=== PATIENT | female | born 1980 | race Caucasian/White ===

== ENCOUNTER 2023-09-07 22:37 | Inpatient (IN) | payer OTHER, SELFPAY ==
[2023-09-07 22:41] VITALS: BP 108/47; PULSE 66; RESP 18; TEMP 36.8; O2SAT 100
[2023-09-07 22:42] VITALS: BP 108/47; PULSE 60; O2SAT 99
--- NOTE | 2023-09-07 22:44 | DI.CT_ITS ---
Exam(s) CT ABDOMEN PELVIS W EXAM: CT ABDOMEN PELVIS W CLINICAL HISTORY: rlq pain, eval for stone, appe, torsion. TECHNIQUE: Imaging Protocol: Axial computed tomography images with coronal and sagittal reformatted images were created and reviewed CONTRAST MATERIAL: Intravenous: Omnipaque 350 Contrast volume:100 ml Oral: no COMPARISON: No exams were available for comparison FINDINGS: ABDOMEN and PELVIS: Lung Bases: No acute findings. Liver: Normal density. No measurable mass. Gallbladder and biliary tract: No radiodense calculus or dilation. Pancreas: Normal density. No abnormal calcifications or inflammatory process. No evidence of mass. Spleen: Normal. Kidneys: Normal size, contour and axis. Small nonobstructing stone upper pole left kidney. 5 x 7 mil limeter stone noted in right ureteropelvic junction causing mild right hydronephrosis. Some fluid is seen surrounding the kidney indicating caliceal rupture. No additional right-sided calculi. A simple cyst is noted in the mid left kidney. There is an 18 millimeter low-density but not purely cystic are a in the superior pole of the left kidney, adjacent to the area of calcification. This may represent a proteinaceous cyst. Adrenal glands: No masses seen. Vasculature: Abdominal aorta non-dilated. Soft tissues: Unremarkable. Bladder: No gross wall thickening. No calculi.No focal mass. Bowel: No obstruction. No bowel wall thickening. Appendix normal. Peritoneal cavity: No ascites. No focal collection or mesenteric inflammatory response. Bones: Incomplete segmentation at the L4-5 level, otherwise unremarkable.. Reproductive organs: Within normal limits. Lymph nodes: Unremarkable. IMPRESSION:: Mild right hydronephrosis secondary to 5 x 7 millimeter calculus at the ureteropelvic j unction. 18 millimeter low-density lesion at the upper pole of the left kidney. Further evaluation with ultras ound recommended. RADIATION DOSE DELIVERED: Total DLP DATA REPOSITORY: All CT scans at this facility are submitted to the National Radiology Data Registry (NRDR) Dose Index Registry (DIR) with the [employer] (ACR). RADIATION OPTIMIZATION: All CT scans at this facility use at least one of these dose optimization te chniques: automated exposure control; mA and/or kV adjustment per patient size (includes targeted exa ms where dose is matched to clinical indication); or iterative reconstruction.
[2023-09-07 22:46] VITALS: BP 106/68; PULSE 76; O2SAT 100
[2023-09-07 22:47] VITALS: O2SAT 100
[2023-09-07 22:58] LABS: Lactate 1.4 mmol/L (0.6-1.4)
[2023-09-07 22:59] LABS: Abs Immature Grans 0.03 10^3/uL (0.0-0.06); Absolute Basophil Count 0.03 10^3/uL (0.0-0.2); Absolute Eosinophil Count 0.05 10^3/uL (0.0-0.7); Absolute Lymphocyte Count 2.28 10^3/uL (1.2-3.4); Absolute Monocyte Count 0.52 10^3/uL (0.1-0.8); Basophils % 0.3; Eosinophils % 0.5; HCT 39.4 % (36.0-46.0); HGB 13.3 g/dL (11.2-15.7); Immature Grans % 0.3; Lymphocytes % 23.2; MCHC 33.8 % (32.0-36.0); MCV 89 fL (80-95); MPV 9.3 fL (8.0-11.0); Monocytes % 5.3; Neutrophils % 70.4; Platelet Count 233 10^3/uL (130-400); RBC 4.43 10^6/uL (3.93-5.22); RDW 12.1 % (11.7-14.6); RDW-SD 39.5 fL; WBC 9.81 10^3/uL (4.4-10.8)
[2023-09-07] MEDS: Ketorolac 15 MG/ML VIAL IVP (23:13)
[2023-09-07] MEDS: Ondansetron 4 MG/2 ML VIAL IVP (23:14)
[2023-09-07] MEDS: Normal Saline 1,000 ML 1000 ML IV (23:14)
[2023-09-07] MEDS: MORPHine 4 MG/ML SYR IVP (23:14)
[2023-09-07 23:16] LABS: ALT 28 U/L (14-59); AST 20 U/L (15-37); Albumin 3.7 g/dL (3.4-5.0); Alkaline Phosphatase 63 U/L (46-116); Anion Gap 8.8 mmol/L (3-11); BUN 16 mg/dL (7-18); Bilirubin, Total 0.3 mg/dL (0.2-1.0); CO2 28.2 mmol/L (21.0-32.0); CREATININE 0.9 mg/dL (0.55-1.02); Calcium 8.7 mg/dL (8.5-10.1); Chloride 106 mmol/L (98-107); Estimated GFR 81.35 (mL/min/1.73m2); Glucose 117 mg/dL (74-106); Sodium 143 mmol/L (136-145); Total Protein 6.6 g/dL (6.4-8.2)
[2023-09-07] MEDS: Omnipaque 350 MG/ML 100 ML BTL IJ (23:29)
[2023-09-07] MEDS: Normal Saline Flush 10 ML SYR IVP (23:31)
[2023-09-07 23:32] LABS: Bilirubin Negative (Negative); Blood Large (Negative); Clarity Clear (Clear); Glucose Negative (Negative); Ketones Trace mg/dL (Negative); Leukocyte Esterase Negative (Negative); Nitrite Negative (Negative); Urobilinogen 0.2 mg/dL (Up to 0.2)
[2023-09-07] MEDS: Normal Saline - Diluent 50 ML VIAL IV (23:32)
[2023-09-07 23:44] LABS: Bacteria Rare HPF (Negative); C & S Indicated? No/Sq. Contamination; Casts Negative LPF (Negative); Crystals Negative HPF (Negative); Epithelial Cells Moderate HPF (Negative); Mucus Negative (Negative); RBC >50 HPF (0-2); WBC 0-2 HPF (0-5)
[2023-09-08] VITALS (8 sets, daily range): BP systolic 100–120; BP diastolic 55–75; PULSE 55–62; RESP 14–19; TEMP 36.1–37.5; O2SAT 96–97
[2023-09-08] MEDS: MORPHine 4 MG/ML SYR IVP (00:28)
[2023-09-08] MEDS: Tamsulosin 0.4 MG CAPCR PO (00:42)
--- NOTE | 2023-09-08 00:53 | DI.VRAD_ITS ---
PROCEDURE INFORMATION: Exam: CT Abdomen And Pelvis With Contrast Exam date and time: 09/07/2023 11:34 PM Age: 43 years old Clinical indication: Abdominal pain; Localized; Right lower quadrant (rlq); Patient HX: Rlq pain, eval for stone, appe, torsion TECHNIQUE: Imaging protocol: Computed tomography of the abdomen and pelvis with contrast. Radiation optimization: All CT scans at this facility use at least one of these dose optimization techniques: automated exposure control; mA and/or kV adjustment per patient size (includes targeted exams where dose is matched to clinical indication); or iterative reconstruction. Contrast material: OMNIPAQUE 350; Contrast volume: 100 ml; Contrast route: INTRAVENOUS (IV); COMPARISON: No relevant prior studies available. FINDINGS: Lungs: Lung bases are clear. Liver: Unremarkable except for nonspecific, mild periportal edema. Gallbladder and bile ducts: Normal. No calcified stones. No ductal dilation. Pancreas: Normal. No ductal dilation. Spleen: Normal. No splenomegaly. Adrenal glands: Normal. No mass. Kidneys and ureters: There is mild right hydronephrosis and 3 x 7 mm stone at the ureteropelvic junction. Mild right perinephric fluid likely related caliceal rupture. No left renal stones or hydronephrosis. There is a left renal 1 cm mid kidney cyst. Second hypodensity seen in the upper pole measuring 1.8 cm, incompletely characterized, suspect complex cyst. Stomach and bowel: Unremarkable stomach. Normal caliber small bowel. Appendix: Normal appendix. Intraperitoneal space: Unremarkable. No free air. No significant fluid collection. Vasculature: Unremarkable. No abdominal aortic aneurysm. Lymph nodes: Unremarkable. No enlarged lymph nodes. Urinary bladder: Bladder is decompressed. Reproductive: Incidentally noted 1 cm involuting left ovarian follicle. Uterus and right adnexal region are unremarkable. Bones/joints: Incidentally noted incomplete segmentation of the L4 and L5 vertebral bodies.. No acute fracture. Soft tissues: Unremarkable. IMPRESSION: Mild right hydronephrosis and 7 x 3 mm stone at the ureteropelvic junction. 1.8 cm hypodense finding in the left renal upper pole which is likely a complex cyst but is incompletely characterized . Suggest further evaluation with outpatient ultrasound. The Dictated and Authenticated by: Mahnaz Capone MD. Ordering:KALEB Veliz MD
--- NOTE | 2023-09-08 01:19 | ED.GENADUL_ITS ---
Discharge Plan Disposition Patient Disposition: Admit to [facility] Condition: Stable Discharge Details Chief Complaint: Abd Prob Clinical Impression: Kidney stone on right side Primary Care Provider: Marta,Local ED Provider: Jose Alfredo Calzada [facility] General Date/Time Provider Initiated Documentation: 09/07/23 22:38 . HPI Narrative: Pleasant 43-year-old female with no significant past medical history who presents today for evaluation of right flank pain. Patient states that about 45 minutes prior to arrival she developed right lower quadrant pain, nausea, vomiting. Pain is severe and stabbing. It does not radiate anywhere else but the right mid to lower area. She denies urinary changes, she had her menstrual cycle 1 week ago. She denies blood in her vomitus. No prior abdominal surgeries. No other complaints at this time. General Stated Complaint: Abd Prob ISIDRO: 3 Review of Systems All systems reviewed & are unremarkable except as noted in HPI and below Exam Narrative Exam Narrative: 1.Const: Well-nourished, Well-developed, appearing stated age 2.Eyes: PERRL, no conjunctival injection, and symmetrical lids. 3.ENT: Atraumatic external nose and ears. Moist MM. Neck: Symmetric, trachea midline, No thyromegaly. 4.CVS: +S1/S2, No murmurs or gallops. Peripheral pulses 2+ and equal in all extremities. Brisk capillary refill in all extremities. 5.RESP: Unlabored respiratory effort. Clear to auscultation bilaterally. No wheezes rales or rhonchi 6.GI: Soft, nondistended. No guarding or rebound. Mild right-sided CVA tenderness, positive psoas sign. Palpation of the right lower and mid quadrants only mildly increases pain. No significant left-sided tenderness. Minimal achiness on the left-hand side. 7.MSK: Normocephalic/Atraumatic, Extremities w/o deformity or ttp No cyanosis or clubbing, Normal movement of all extremities 8.Skin: Warm, Dry. No rashes or lesions. 9.Neuro: visual inspector II-XII grossly intact. Sensation grossly intact, no focal n eurologic deficits. 10.Psych: (AAO) x3. Appropriate mood and affect Course Vital Signs Vital signs: Vital Signs Temperature 36.8 C 09/07/23 22:41 Pulse 66 09/07/23 22:41 Respiratory Rate 18 09/07/23 22:41 Blood Pressure 108/47 L 09/07/23 22:41 Pulse Oximetry 100 09/07/23 22:41 Temperature 36.8 C 09/07/23 22:41 Temperature Source Temporal Artery Scan 09/07/23 22:41 Pulse 76 09/07/23 22:46 Respiratory Rate 18 09/07/23 22:41 Respiratory Effort Normal 09/07/23 22:43 Blood Pressure 106/68 09/07/23 22:46 Blood Pressure Mean 78 09/07/23 22:46 Blood Pressure Position Supine 09/07/23 22:41 Pulse Oximetry 100 09/07/23 22:46 Oxygen Delivery Method Room Air 09/07/23 22:41 Oxygen Flow Rate 0 09/07/23 22:41 Pain Level 9 09/07/23 22:41 Lab/Test Results Lab/Test Results: Laboratory Tests Range/Units 09/07/23 09/07/23 22:55 23:22 WBC (4.4-10.8) 10^3/uL 9.81 RBC (3.93-5.22) 10^6/uL 4.43 Hgb (11.2-15.7) g/dL 13.3 Hct (36.0-46.0) % 39.4 MCV (80-95) fL 89 MCH (27.0-33.0) pg 30.0 MCHC (32.0-36.0) % 33.8 RDW (11.7-14.6) % 12.1 Plt Count (130-400) 10^3/uL 233 MPV (8.0-11.0) fL 9.3 Immature Gran % 0.3 Neutrophils % 70.4 Lymphocytes % 23.2 Monocytes % 5.3 Eosinophils % 0.5 Basophils % 0.3 Nucleated RBC % (0.0-0.3) % 0.0 Absolute Neutrophils (1.2-6.7) 10^3/uL 6.90 H Absolute Lymphocytes (1.2-3.4) 10^3/uL 2.28 Absolute Monocytes (0.1-0.8) 10^3/uL 0.52 Absolute Eosinophils (0.0-0.7) 10^3/uL 0.05 Absolute Basophils (0.0-0.2) 10^3/uL 0.03 VBG Lactate (0.6-1.4) mmol/L 1.4 Sodium (136-145) mmol/L 143 Potassium (3.5-5.1) mmol/L 4.0 Chloride (98-107) mmol/L 106 Carbon Dioxide (21.0-32.0) mmol/L 28.2 Anion Gap (3-11) mmol/L 8.8 BUN (7-18) mg/dL 16 Creatinine (0.55-1.02) mg/dL 0.9 Est GFR (CKD-EPI 2020) (mL/min/1.73m2) 81.35 Glucose (74-106) mg/dL 117 H Calcium (8.5-10.1) mg/dL 8.7 Total Bilirubin (0.2-1.0) mg/dL 0.3 AST (15-37) U/L 20 ALT (14-59) U/L 28 Alkaline Phosphatase (46-116) U/L 63 Total Protein (6.4-8.2) g/dL 6.6 Albumin (3.4-5.0) g/dL 3.7 Urine Color (Yellow) Yellow Urine Clarity (Clear) Clear Urine pH (5-8) 7.0 Ur Specific [place] (1.005-1.025) 1.020 Urine Protein (Neg-Trace) mg/dL Trace Urine Ketones (Negative) mg/dL Trace H Urine Blood (Negative) Large H Urine Nitrite (Negative) Negative Urine Bilirubin (Negative) Negative Urine Urobilinogen (Up to 0.2) mg/dL 0.2 Ur Leukocyte Esterase (Negative) Negative Urine RBC (0-2) HPF >50 H Urine WBC (0-5) HPF 0-2 Ur Epithelial Cells (Negative) HPF Moderate Urine Crystals (Negative) HPF Negative Urine Bacteria (Negative) HPF Rare Urine Casts (Negative) LPF Negative Urine Mucus (Negative) Negative Ur Culture Indicated? No/Sq. Contamination Urine Glucose (Negative) mg/dL Negative POC- Test(urine) Negative Medical Decision Making Pleasant 43-year-old female with no significant past medical history who presents today for evaluation of right flank pain. Patient states that about 45 minutes prior to arrival she developed right lower quadrant pain, nausea, vomiting. Pain is severe and stabbing. It does not radiate anywhere else but the right mid to lower area. She denies urinary changes, she had her menstrual cycle 1 week ago. She denies blood in her vomitus. No prior abdominal surgeries. No other complaints at this time. Exam demonstrates right CVA tenderness, positive psoas sign, only slight worsening of the pain with palpation in the right lower quadrant. Symptoms are concerning for differential of appendicitis, kidney stone, or ovarian cyst. Will treat the patient's pain with Toradol, morphine, Zofran. Will monitor closely and reassess. 1:24 AM Laboratory workup returned, no white count bandemia or significant left shift. Lactate normal. Electrolytes normal, renal function excellent. Urinalysis shows large blood, no infection whatsoever. Pain was not well-managed with the initial morphine and Toradol. An additional 4 mg of morphine were given for a total of 8, as well as Ofirmev. And patient still did not have improvement of pain with this. CT scan shows evidence of a kidney stone, Flomax was added, but no change in pain. 1 mg of Dilaudid was added and only mild improvement of yon n. CT scan shows no sign of appendicitis, or large ovarian cyst suggestive of ovarian torsion. The patient's persistent pain and nausea I do feel that admission is indicated for pain control and continued fluid hydration. No emergent need for stenting at this time as she has excellent renal function and no signs of infection. That being said she may eventually need stenting down the road as the stone is 7 x 3 mm, and at the ureteropelvic junction. Discussed the case with the hospitalist Dr. Robledo for admission for pain control. He agrees. I have extensively reviewed the treatment plan with the patient. I have addressed all patient concerns at this time. I have also discussed the plan with the admitting physician and they agree with the current assessment and plan and have agreed to assume responsibility for the patient. All parties demonstrate verbal understanding and agreement with our assessment and plan at this time. The documentation in this chart was dictated using [employer] dictation software. Please excuse any dictation errors. FINDINGS: Lungs: Lung bases are clear. Liver: Unremarkable except for nonspecific, mild periportal edema. Gallbladder and bile ducts: Normal. No calcified stones. No ductal dilation. Pancreas: Normal. No ductal dilation. Spleen: Normal. No splenomegaly. Adrenal glands: Normal. No mass. Kidneys and ureters: There is mild right hydronephrosis and 3 x 7 mm stone at the ureteropelvic junction. Mild right perinephric fluid likely related caliceal rupture. No left renal stones or hydronephrosis. There is a left renal 1 cm mid kidney cyst. Second hypodensity seen in the upper pole measuring 1.8 cm, incompletely characterized, suspect complex cyst. Stomach and bowel: Unremarkable stomach. Normal caliber small bowel. Appendix: Normal appendix. Intraperitoneal space: Unremarkable. No free air. No significant fluid collection. Vasculature: Unremarkable. No abdominal aortic aneurysm. Lymph nodes: Unremarkable. No enlarged lymph nodes. Urinary bladder: Bladder is decompressed. Reproductive: Incidentally noted 1 cm involuting left ovarian follicle. Uterus and right adnexal region are unremarkable. Bones/joints: Incidentally noted incomplete segmentation of the L4 and L5 vertebral bodies.. No acute fracture. Soft tissues: Unremarkable. IMPRESSION: Mild right hydronephrosis and 7 x 3 mm stone at the ureteropelvic junction. 1.8 cm hypodense finding in the left renal upper pole which is likely a complex cyst but is incompletely characterized . Suggest further evaluation with outpatient ultrasound. The Thank you for allowing us to participate in the care of your patient. Dictated and Authenticated by: Mahnaz Capone MD 09/08/2023 12:52 AM Eastern Time ([place] & [place]) Quality:SDOH Health Related Social Needs: No Data to Display PFSH All Active Problems (Updated 09/08/23 @ 01:27 by Jose Alfredo Calzada DO) Kidney stone on right side (Acute) Social History Smoking risk assessment performed?: No Alcohol Intake: current Alcohol Intake frequency: a few times a month
[2023-09-08] MEDS: ACETAMINOPHEN 1,000 MG/100 ML BTL 400 MG IVPB (01:21)
[2023-09-08] MEDS: HYDROmorphone 2 MG/ML SYR 1 MG IVP ×6 (01:22→17:37)
--- NOTE | 2023-09-08 01:38 | HPE_ITS ---
Date of service: 09/08/23 Time of Service: 01:38 Assessment and Plan Assessment and plan (1) Ureteropelvic junction (UPJ) obstruction: Start date: 09/08/23 Status: Acute Assessment and plan: This is a 43-year-old lady with no previous history of renal stones presenting with right proximal ureteral stone with obstruction causing mild hydronephrosis. He is having persistent pain despite IV Dilaudid which decreases the intensity. It remains persistent and stabbing with some colic. She is on IV hydration with IV Dilaudid for pain management with urology to be consulted during the day. She may need stenting and transfer for outpatient procedure may be possible. She has no signs or symptoms of infection at this time. She is on Flomax. Continue Flomax with IV hydration pending urology evaluation and treatment plan. She is a full code. (2) Hydronephrosis due to obstruction of ureter: Start date: 09/08/23 Status: Acute Assessment and plan: Mild with significant 7 mm right ureteral stone. Urology consultation as above. (3) Renal cyst, right: Start date: 09/08/23 Status: Acute Assessment and plan: Incidental finding on CT with follow-up recommended. Ultrasound may be helpful to differentiate between complex cyst versus simple cysts versus mass which needs further evaluation. She does have hematuria but does have a renal stone. This was not reviewed with the patient upon admission but will be reviewed before discharge with urology to advise. 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 She is originally from [facility]. She has had increased running as a sport recently and about 2 weeks ago, ran a long run in [place] after which she urinated brown urine before rehydration. She also had recent changes in diet with [employer]. She presented to the ED with a 1 hour history of right flank pain which had associated nausea and vomiting. It did not radiate and persisted in the right flank and mid abdomen. CT scan did not reveal appendicitis but a right renal stone with obstruction of the UP junction and mild hydronephrosis. Stone was about 3 x 7 mm. She had no previous history of kidney stones and actually had no significant past medical history. She has had no previous surgeries. She is not . She was given antiemetics and analgesics in the ED with Dilaudid taking the edge off pain but not resolving her pain. Her pain persists though tolerable. She is on IV hydration with Flomax orally and urology has been consulted. I did call Dr[facility] Mar[facility] and will need to have urology at another institution addressed and stenting if she is not improving. There is no sign of infection and she is not on antibiotics at this time. Her nausea vomiting has resolved. She is a full code. Review of Systems Narrative: 13 point review of systems otherwise unrevealing or stable. PFSH All Active Problems (Updated 09/08/23 @ 07:56 by Zac Robledo) Renal cyst, right (Acute) Hydronephrosis due to obstruction of ureter (Acute) Ureteropelvic junction (UPJ) obstruction (Acute) Kidney stone on right side (Acute) Social History Smoking risk assessment performed?: No Alcohol Intake: current Alcohol Intake frequency: a few times a month Housing: house Meds Allergies and Home Medications Allergies Allergy/AdvReac Type Severity Reaction Status Date / Time No Known Allergies Allergy Unverified 09/08/23 01:27 Home Medications Medication Instructions Recorded Confirmed Type Unknown [No Known Home Meds] 09/08/23 09/08/23 History Exam Narrative Exam Narrative: General: Patient is a normal build with mild obesity, she appears appropriate for age, alert and oriented x 3 and in no acute distress. HEENT: Normocephalic, eyes with pupils equal and reactive to light symmetrically, extraocular movement intact and sclera anicteric. Oral mucosa is moist with normal dentition. Neck: Supple without JVD. Back: Slightly stooped posture with right CVA tenderness. Lungs: Clear to auscultation percussion with no focalizing rales or rhonchi. Normal aeration. Breast: Exam deferred. Heart: Regular rate and rhythm with no murmurs or gallops appreciated. Abdomen: Tender to palpation of the right mid-abdomen with no palpable masses, slight guarding but no rebound. Otherwise abdomen is soft with no guarding over other areas and no palpable kidneys. No palpable hepatosplenomegaly. Bowel sounds are positive in all quadrants. Genitalia/rectal: Exam deferred. Extremities: Without clubbing, cyanosis or pitting edema. Peripheral pulses intact. Skin: Normal color, warm and dry. No rashes. Neuro: Cranial nerves II to XII grossly intact, no focal motor deficits. No tremor. Psych: Normal affect and mood. No abnormal thought processes. Remote risk memory grossly intact. Results Imaging Imaging Studies: Exam: CT Abdomen And Pelvis With Contrast Exam date and time: 09/07/2023 11:34 PM Age: 43 years old Clinical indication: Abdominal pain; Localized; Right lower quadrant (rlq); Patient HX: Rlq pain, eval for stone, appe, torsion TECHNIQUE: Imaging protocol: Computed tomography of the abdomen and pelvis with contrast. Radiation optimization: All CT scans at this facility use at least one of these dose optimization techniques: automated exposure control; mA and/or kV adjustment per patient size (includes targeted exams where dose is matched to clinical indication); or iterative reconstruction. Contrast material: OMNIPAQUE 350; Contrast volume: 100 ml; Contrast route: INTRAVENOUS (IV); COMPARISON: No relevant prior studies available. FINDINGS: Lungs: Lung bases are clear. Liver: Unremarkable except for nonspecific, mild periportal edema. Gallbladder and bile ducts: Normal. No calcified stones. No ductal dilation. Pancreas: Normal. No ductal dilation. Spleen: Normal. No splenomegaly. Adrenal glands: Normal. No mass. Kidneys and ureters: There is mild right hydronephrosis and 3 x 7 mm stone at the ureteropelvic junction. Mild right perinephric fluid likely related caliceal rupture. No left renal stones or hydronephrosis. There is a left renal 1 cm mid kidney cyst. Second hypodensity seen in the upper pole measuring 1.8 cm, incompletely characterized, suspect complex cyst. Stomach and bowel: Unremarkable stomach. Normal caliber small bowel. Appendix: Normal appendix. Intraperitoneal space: Unremarkable. No free air. No significant fluid collection. Vasculature: Unremarkable. No abdominal aortic aneurysm. Lymph nodes: Unremarkable. No enlarged lymph nodes. Urinary bladder: Bladder is decompressed. Reproductive: Incidentally noted 1 cm involuting left ovarian follicle. Uterus and right adnexal region are unremarkable. Bones/joints: Incidentally noted incomplete segmentation of the L4 and L5 vertebral bodies.. No acute fracture. Soft tissues: Unremarkable. IMPRESSION: Mild right hydronephrosis and 7 x 3 mm stone at the ureteropelvic junction. 1.8 cm hypodense finding in the left renal upper pole which is likely a complex cyst but is incompletely characterized . Suggest further evaluation with outpatient ultrasound. Labs 09/08/23 06:05 09/08/23 06:05 Labs: Laboratory Results - last 24 hr 09/07/23 09/07/23 22:55 23:22 WBC 9.81 RBC 4.43 Hgb 13.3 Hct 39.4 MCV 89 MCH 30.0 MCHC 33.8 RDW 12.1 Plt Count 233 MPV 9.3 Immature Gran % 0.3 Neutrophils % 70.4 Lymphocytes % 23.2 Monocytes % 5.3 Eosinophils % 0.5 Basophils % 0.3 Nucleated RBC % 0.0 Absolute Neutrophils 6.90 H Absolute Lymphocytes 2.28 Absolute Monocytes 0.52 Absolute Eosinophils 0.05 Absolute Basophils 0.03 VBG Lactate 1.4 Sodium 143 Potassium 4.0 Chloride 106 Carbon Dioxide 28.2 Anion Gap 8.8 BUN 16 Creatinine 0.9 Est GFR (CKD-EPI 2020) 81.35 Glucose 117 H Calcium 8.7 Total Bilirubin 0.3 AST 20 ALT 28 Alkaline Phosphatase 63 Total Protein 6.6 Albumin 3.7 Urine Color Yellow Urine Clarity Clear Urine pH 7.0 Ur Specific [place] 1.020 Urine Protein Trace Urine Ketones Trace H Urine Blood Large H Urine Nitrite Negative Urine Bilirubin Negative Urine Urobilinogen 0.2 Ur Leukocyte Esterase Negative Urine RBC >50 H Urine WBC 0-2 Ur Epithelial Cells Moderate Urine Crystals Negative Urine Bacteria Rare Urine Casts Negative Urine Mucus Negative Ur Culture Indicated? No/Sq. Contamination Urine Glucose Negative Last Vital Signs Temp 36.8 C 09/07/23 22:41 Pulse 76 09/07/23 22:46 Resp 18 09/07/23 22:41 BP 106/68 09/07/23 22:46 Pulse Ox 100 09/07/23 22:46 Time Spent Time spent with Patient: 55-74 minutes Time was spent: preparing to see the patient(eg.review tests), obtaining and/or reviewing separately otained hiistory, ordering medications,tests, procedures, referring, communicating with other health respiratory care technician, indepentently interpreting results, counseling the patient and care coordination
[2023-09-08] MEDS: Normal Saline 1,000 ML 125 ML IV ×3 (03:08→19:34)
[2023-09-08 06:15] LABS: HCT 40.1 % (36.0-46.0); HGB 13.6 g/dL (11.2-15.7); MCH 29.9 pg (27.0-33.0); MCHC 33.9 % (32.0-36.0); MCV 88 fL (80-95); MPV 9.7 fL (8.0-11.0); Platelet Count 241 10^3/uL (130-400); RBC 4.55 10^6/uL (3.93-5.22); RDW 12.3 % (11.7-14.6); RDW-SD 39.8 fL; WBC 10.79 10^3/uL (4.4-10.8)
[2023-09-08 06:29] LABS: ALT 67 U/L (14-59); AST 49 U/L (15-37); Albumin 3.6 g/dL (3.4-5.0); Alkaline Phosphatase 66 U/L (46-116); Anion Gap 11.9 mmol/L (3-11); BUN 17 mg/dL (7-18); Bilirubin, Total 0.5 mg/dL (0.2-1.0); CO2 24.1 mmol/L (21.0-32.0); CREATININE 1.1 mg/dL (0.55-1.02); Calcium 8.5 mg/dL (8.5-10.1); Chloride 108 mmol/L (98-107); Estimated GFR 63.94 (mL/min/1.73m2); Glucose 117 mg/dL (74-106); Magnesium 1.8 mg/dL (1.8-2.4); Potassium 4.3 mmol/L (3.5-5.1); Sodium 144 mmol/L (136-145); Total Protein 6.3 g/dL (6.4-8.2)
[2023-09-08] MEDS: Tamsulosin 0.4 MG CAPCR 0.8 MG PO (08:13)
[2023-09-08] MEDS: Normal Saline Flush 10 ML SYR IVP ×4 (08:14→17:36)
--- NOTE | 2023-09-08 09:01 | PDOC.CMIN ---
Date of service: 09/08/23 Care Management Initial Assmt Initial Assessment REASON FOR HOSPITALIZATION:: Rt lower quad pain PREVIOUS FUNCTIONAL STATUS/SOCIAL/FAMILY SUPPORTS:: Yessy lives in [place] after moving to [place] from [place]. She is an from [place]. Per MD, Yessy is independent at baseline in the community. CURRENT FUNCTIONAL STATUS:: Yessy was sitting up in bed when talking with CM. She discussed she was hoping to pass the kidney stone on her own as also reported out from MD this was their mutual plan. Yessy says she is not in need of any services but CM provided contact information should she change her mind. Yessy had visitors who arrived so CM interaction brief. CM following. ADVANCE DIRECTIVES:: None on file at [facility] Has patient been provided with info about the portal/API?: Yes Did the patient sign up for the portal?: No CODE STATUS:: Full Code INSURANCE COVERAGE / FINANCIAL ISSUES:: [facility] PRIMARY CARE PHYSICIAN:: No local POTENTIAL DISCHARGE NEEDS:: F/U appts PATIENT/FAMILY EDUCATION NEEDS:: Review of discharge instructions and limitations, discussion of [employer] TRANSPORTATION:: Via private vehicle PLAN:: Anticipate Yessy will discharge home. She will transport via private vehicle. She will follow up with a PCP and plan of care instructions. CM following [facility] All Active Problems (Updated 09/08/23 @ 07:56 by Zac Robledo) Renal cyst, right (Acute) Hydronephrosis due to obstruction of ureter (Acute) Ureteropelvic junction (UPJ) obstruction (Acute) Kidney stone on right side (Acute) Social History Smoking risk assessment performed?: No Alcohol Intake: current Alcohol Intake frequency: a few times a month Housing: [facility](Care Management) Screening Will the Patient Participate in the Screening?: Yes Do you worry about having a steady place to live?: no In the past 12 months, have you had to go without electric, gas, oil or water in your home?: no Have you or anyone in your house had to go without enough food to eat?: no Has lack of transportation kept you from medical appointments or from doing things needed for daily living?: no Has anyone in your support network made you feel unsafe for any reason?: no
[2023-09-08] MEDS: Ondansetron 4 MG/2 ML VIAL IVP (12:35)
--- NOTE | 2023-09-08 13:03 | PHA.ACLINAW ---
Renal Dosing Renal Dosing: BUN 17 mg/dL (7-18) 09/08/23 06:05 Creatinine 1.1 mg/dL (0.55-1.02) H 09/08/23 06:05 Anticoagulation Anticoagulation: Hgb 13.6 g/dL (11.2-15.7) 09/08/23 06:05 Hct 40.1 % (36.0-46.0) 09/08/23 06:05 Plt Count 241 10^3/uL (130-400) 09/08/23 06:05 Creatinine 1.1 mg/dL (0.55-1.02) H 09/08/23 06:05 Relevant Labs Relevant Labs: Sodium 144 mmol/L (136-145) 09/08/23 06:05 Potassium 4.3 mmol/L (3.5-5.1) 09/08/23 06:05 Chloride 108 mmol/L (98-107) H 09/08/23 06:05 Magnesium 1.8 mg/dL (1.8-2.4) 09/08/23 06:05 DM Control DM Control: Glucose 117 mg/dL (74-106) H 09/08/23 06:05
--- NOTE | 2023-09-08 13:04 | PHA.REVIEW2 ---
Pharmacy Admission Review Admission Clinical Review Admission Pharmacy Review: Renal cyst, right (Acute) Hydronephrosis due to obstruction of ureter (Acute) Ureteropelvic junction (UPJ) obstruction (Acute) No Known Allergies Allergy (Unverified 09/08/23 01:27) Resuscitation Status Full Code Height 5 ft 8 in Weight 68.353 kg Comments Comments/Follow Ups: Watch VS, labs and for med changes. Pharmacy Admission Review Renal Dosing Renal Dosing: BUN 17 mg/dL (7-18) 09/08/23 06:05 Creatinine 1.1 mg/dL (0.55-1.02) H 09/08/23 06:05 Medications needing adjustments: Reviewed (Crcl ~71.16 mL/min current meds okay) Anticoagulation Anticoagulation: Hgb 13.6 g/dL (11.2-15.7) 09/08/23 06:05 Hct 40.1 % (36.0-46.0) 09/08/23 06:05 Plt Count 241 10^3/uL (130-400) 09/08/23 06:05 Creatinine 1.1 mg/dL (0.55-1.02) H 09/08/23 06:05 DVT Prophylaxis: Reviewed (SCDs are ordered) Therapeutic Anticoagulation: N/A Opiate Usage Evaluate Pain Scale/Pains Meds: Reviewed Scheduled Bowel Reg ordered if on Opiates?: No (has PRN meds ordered) Relevant Labs Relevant Labs: Sodium 144 mmol/L (136-145) 09/08/23 06:05 Potassium 4.3 mmol/L (3.5-5.1) 09/08/23 06:05 Chloride 108 mmol/L (98-107) H 09/08/23 06:05 Magnesium 1.8 mg/dL (1.8-2.4) 09/08/23 06:05 Electrolytes, C-Reactive P, ESR: Reviewed DM Control DM Control: N/A Cardiac Review BP, HR, EF%: Reviewed (BP and HR have been low to normal so far this admission) QTc Review QTc: N/A IV to PO Switch IV Medications: Reviewed Home Meds Home Med List reviewed: Reviewed (no known home meds) Current Meds Current Medication Order Review: Reviewed Comments Comments/Follow Ups: Watch VS, labs and for med changes.
[2023-09-08 13:34] LABS: Anion Gap 10.5 mmol/L (3-11); BUN 17 mg/dL (7-18); CO2 23.5 mmol/L (21.0-32.0); CREATININE 1.3 mg/dL (0.55-1.02); Calcium 8.2 mg/dL (8.5-10.1); Chloride 108 mmol/L (98-107); Estimated GFR 52.33 (mL/min/1.73m2); Glucose 94 mg/dL (74-106); Potassium 3.6 mmol/L (3.5-5.1); Sodium 142 mmol/L (136-145)
[2023-09-08] MEDS: Ketorolac 15 MG/ML VIAL IVP ×2 (14:11→20:08)
--- NOTE | 2023-09-08 14:52 | UCONE_ITS ---
Date of service: 09/08/23 Time of Service: 13:00 Assessment and Plan Assessment and plan (1) Ureteropelvic junction (UPJ) obstruction: Status: Acute (2) Hydronephrosis due to obstruction of ureter: Status: Acute Assessment and plan: Reviewed CT imaging with the patient and discussed her 5 x 7 mm UPJ right calculi that is causing mild hydronephrosis. We noted that there is a less than 50% chance possibility of passing this without surgical intervention. We also discussed that Dr. Marquez is out of the area until next week. We noted that if pain was not managed that our recommendation since Dr. Marquez is unavailable for surgical procedure is to seek transfer for patient to have procedure at another facility. We did discuss the option if pain is managed that surgical intervention procedure of stone manipulation could occur as early as next week when Dr. Marquez returns. Patient expresses information. This information was also discussed with hospitalist. At this point since patient is without infection, would recommend continuation of Flomax as well as IV fluids. May also benefit from use of Toradol for pain management if renal functions remained stable. Dictation was done by [employer] voice recognition. Errors may be present within the note. A total of 25 minutes was spent reviewing this patient's EMR, [id number] time, and documenting of consult. History of Present Illness History of Present Illness Chief Complaint: Acute onset right flank pain Narrative: Yessy is a 43-year-old female patient with right flank pain and associated nausea and vomiting that presented to the emergency room yesterday. She was admitted to the medical surgical floor for pain management. She was found to have a 5 x 7 mm calculi at the right UPJ. She notes no prior kidney stone history. She states that her pain is better but not resolved with the use of Dilaudid and that she is still having nausea sensation. She does not report dysuria, gross hematuria or suprapubic discomfort. No fever or chills have been noted. She does note that her right lower quadrant discomfort keeps her knees in a bent position when she lays on her back that she cannot lay flat with extending her legs. Consults Consult date: 09/08/23 Requesting physician: Zac Robledo Review of Systems Narrative: [facility] All Active Problems (Updated 09/08/23 @ 07:56 by Zac Robledo) Renal cyst, right (Acute) Hydronephrosis due to obstruction of ureter (Acute) Ureteropelvic junction (UPJ) obstruction (Acute) Kidney stone on right side (Acute) Social History Smoking risk assessment performed?: No Alcohol Intake: current Alcohol Intake frequency: a few times a month Housing: house Exam Const Orientation: alert, awake and oriented x3 Eyes Sclera: sclerae normal Resp Effort & Inspection: normal respiratory effort GI Inspection: normal to inspection and non-distended Palpation: soft, no masses and tender in the RLQ General: CVA tenderness on the right (mild); not on the left Results Last Vital Signs Temp 97.9 F 09/08/23 11:10 Pulse 59 L 09/08/23 11:10 Resp 17 09/08/23 11:10 BP 111/56 L 09/08/23 11:10 Pulse Ox 96 09/08/23 11:10 Labs 09/08/23 06:05 09/08/23 13:10 Labs: Laboratory Results - last 24 hr 09/07/23 09/07/23 09/08/23 22:55 23:22 06:05 WBC 9.81 10.79 RBC 4.43 4.55 Hgb 13.3 13.6 Hct 39.4 40.1 MCV 89 88 MCH 30.0 29.9 MCHC 33.8 33.9 RDW 12.1 12.3 Plt Count 233 241 MPV 9.3 9.7 Immature Gran % 0.3 Neutrophils % 70.4 Lymphocytes % 23.2 Monocytes % 5.3 Eosinophils % 0.5 Basophils % 0.3 Nucleated RBC % 0.0 Absolute Neutrophils 6.90 H Absolute Lymphocytes 2.28 Absolute Monocytes 0.52 Absolute Eosinophils 0.05 Absolute Basophils 0.03 VBG Lactate 1.4 Sodium 143 144 Potassium 4.0 4.3 Chloride 106 108 H Carbon Dioxide 28.2 24.1 Anion Gap 8.8 11.9 H BUN 16 17 Creatinine 0.9 1.1 H Est GFR (CKD-EPI 2020) 81.35 63.94 Glucose 117 H 117 H Calcium 8.7 8.5 Magnesium 1.8 Total Bilirubin 0.3 0.5 AST 20 49 H ALT 28 67 H Alkaline Phosphatase 63 66 Total Protein 6.6 6.3 L Albumin 3.7 3.6 Urine Color Yellow Urine Clarity Clear Urine pH 7.0 Ur Specific [place] 1.020 Urine Protein Trace Urine Ketones Trace H Urine Blood Large H Urine Nitrite Negative Urine Bilirubin Negative Urine Urobilinogen 0.2 Ur Leukocyte Esterase Negative Urine RBC >50 H Urine WBC 0-2 Ur Epithelial Cells Moderate Urine Crystals Negative Urine Bacteria Rare Urine Casts Negative Urine Mucus Negative Ur Culture Indicated? No/Sq. Contamination Urine Glucose Negative 09/08/23 13:10 WBC RBC Hgb Hct MCV MCH MCHC RDW Plt Count MPV Immature Gran % Neutrophils % Lymphocytes % Monocytes % Eosinophils % Basophils % Nucleated RBC % Absolute Neutrophils Absolute Lymphocytes Absolute Monocytes Absolute Eosinophils Absolute Basophils VBG Lactate Sodium 142 Potassium 3.6 Chloride 108 H Carbon Dioxide 23.5 Anion Gap 10.5 BUN 17 Creatinine 1.3 H Est GFR (CKD-EPI 2020) 52.33 Glucose 94 Calcium 8.2 L Magnesium Total Bilirubin AST ALT Alkaline Phosphatase Total Protein Albumin Urine Color Urine Clarity Urine pH Ur Specific [place] Urine Protein Urine Ketones Urine Blood Urine Nitrite Urine Bilirubin Urine Urobilinogen Ur Leukocyte Esterase Urine RBC Urine WBC Ur Epithelial Cells Urine Crystals Urine Bacteria Urine Casts Urine Mucus Ur Culture Indicated? Urine Glucose
[2023-09-09] MEDS: HYDROmorphone 2 MG/ML SYR 1 MG IVP (00:37)
[2023-09-09] MEDS: Ketorolac 15 MG/ML VIAL IVP ×4 (02:05→20:48)
[2023-09-09] MEDS: Normal Saline 1,000 ML 125 ML IV ×3 (02:05→18:20)
[2023-09-09 03:19] VITALS: BP 111/66; PULSE 62; RESP 16; TEMP 37.3; O2SAT 95
[2023-09-09 06:30] LABS: HCT 34.2 % (36.0-46.0); HGB 11.4 g/dL (11.2-15.7); MCHC 33.3 % (32.0-36.0); MCV 90 fL (80-95); MPV 9.8 fL (8.0-11.0); Platelet Count 146 10^3/uL (130-400); RDW 12.3 % (11.7-14.6); RDW-SD 40.4 fL
[2023-09-09 06:42] LABS: Anion Gap 8.4 mmol/L (3-11); BUN 14 mg/dL (7-18); CO2 22.6 mmol/L (21.0-32.0); CREATININE 1.2 mg/dL (0.55-1.02); Calcium 7.7 mg/dL (8.5-10.1); Chloride 110 mmol/L (98-107); Glucose 97 mg/dL (74-106); Potassium 3.8 mmol/L (3.5-5.1); Sodium 141 mmol/L (136-145)
[2023-09-09] MEDS: Tamsulosin 0.4 MG CAPCR 0.8 MG PO (07:50)
[2023-09-09] MEDS: Normal Saline Flush 10 ML SYR IVP ×3 (07:51→21:09)
[2023-09-09 07:54] VITALS: BP 100/55; PULSE 58; RESP 16; TEMP 36.4; O2SAT 100
--- NOTE | 2023-09-09 08:47 | W.PM.PROGNOT ---
Date of Service Date of service: 09/09/23 Time of Service: 08:47 Assessment and Plan Assessment and plan (1) Ureteropelvic junction (UPJ) obstruction: Status: Acute Assessment and plan: -CT showed 5x7mm calculi in right UPJ with mild hydronephrosis -UPO good, continue NS 125ml/hr, flowmax, toradol and PRN dilaudid -Cr 0.9, 1.1, 1.3, 1.2, will continue to monitor -if patients pain becomes significantly worse, becomes febrile, or has significant drop off in UOP will reach out for transfer for Urgent Urologic intervention as Dr. Marquez is not available until wednesday -if patient remains stable, plan for ureteral stent placement Wednesday w/ Dr. Marquez (2) Hydronephrosis due to obstruction of ureter: Status: Acute Assessment and plan: -due to UPJ stone as noted above Subjective Subjective Interval history since last seen: Patient states that she is feeling better today and that her pain is well-controlled. Otherwise she has no other complaints concerns at Exam Narrative Exam Narrative: Healthy young female laying in bed in no acute distress, ANO x 4, heart regular rhythm, lungs clear to auscultation bilaterally, abdomen soft, nontender, nondistended Objective Last Vital Signs Temp 97.5 F L 09/09/23 07:54 Pulse 58 L 09/09/23 07:54 Resp 16 09/09/23 07:54 BP 100/55 L 09/09/23 07:54 Pulse Ox 100 09/09/23 07:54 Laboratory Results - last 24 hr 09/08/23 09/09/23 13:10 06:23 WBC 7.50 RBC 3.80 L Hgb 11.4 D Hct 34.2 L MCV 90 MCH 30.0 MCHC 33.3 RDW 12.3 Plt Count 146 MPV 9.8 Sodium 142 141 Potassium 3.6 3.8 Chloride 108 H 110 H Carbon Dioxide 23.5 22.6 Anion Gap 10.5 8.4 BUN 17 14 Creatinine 1.3 H 1.2 H Est GFR (CKD-EPI 2020) 52.33 57.60 Glucose 94 97 Calcium 8.2 L 7.7 L Time Spent with Patient Time Spent with Patient: >50 minutes Time was spent: preparing to see the patient(eg.review tests), obtaining and/or reviewing separately otained hiistory, ordering medications,tests, procedures, referring, communicating with other health home health care physician, indepentently interpreting results, counseling the patient and care coordination
--- NOTE | 2023-09-09 09:52 | PDOC.CMPRO ---
Date of service: 09/09/23 Care Management Progress Note Progress Note Text Progress Note Text: S/O: Yessy was sitting up in a chair when talking with CM. 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 She is building a home she has dreamed of having in [place] on four acres of property that is perfect distrance to trails she enjoys biking on. It is not known at this time if out of state insurance will approve coverage for the urology procedure that is needed. CM spoke to CONFLICT RESOLUTION PROFESSIONAL for Dr. Marquez who can perform needed urology procedure Wednesday. CM let CONFLICT RESOLUTION PROFESSIONAL know a prior authorization will be needed through patients insurance company facilitated from the clinic where the procedure will be completed. CM will continue to follow. A: Yessy is a 43 year old female admitted to [facility] 09/08/23 for right ureteropelvic obstruction w/ hydronephrosis. P: Yessy will discharge home when medically cleared. She will follow up with her PCP and plan of care instructions. She will transport via private vehicle. CM following. [facility](Care Management) Screening Will the Patient Participate in the Screening?: Yes Do you worry about having a steady place to live?: no In the past 12 months, have you had to go without electric, gas, oil or water in your home?: no Have you or anyone in your house had to go without enough food to eat?: no Has lack of transportation kept you from medical appointments or from doing things needed for daily living?: no Has anyone in your support network made you feel unsafe for any reason?: no
[2023-09-09 11:06] VITALS: BP 117/77; PULSE 62; RESP 16; TEMP 36.6; O2SAT 99
[2023-09-09] MEDS: Polyethylene Glycol 3350 17 GM PACKET PO (14:23)
[2023-09-09 14:58] VITALS: BP 105/68; PULSE 62; RESP 16; TEMP 36.8; O2SAT 99
[2023-09-09 23:06] VITALS: BP 100/68; PULSE 58; RESP 18; TEMP 36.3; O2SAT 96
[2023-09-10] VITALS (7 sets, daily range): BP systolic 102–130; BP diastolic 56–72; PULSE 50–65; RESP 16; TEMP 37.1–37.8; O2SAT 96–99
[2023-09-10] MEDS: Ketorolac 15 MG/ML VIAL IVP ×4 (02:01→22:46)
[2023-09-10] MEDS: Normal Saline 1,000 ML 125 ML IV ×3 (02:02→19:27)
[2023-09-10 06:36] LABS: HCT 32.7 % (36.0-46.0); HGB 11.1 g/dL (11.2-15.7); MCH 30.2 pg (27.0-33.0); MCHC 33.9 % (32.0-36.0); MCV 89 fL (80-95); Platelet Count 151 10^3/uL (130-400); RBC 3.67 10^6/uL (3.93-5.22); RDW 12.1 % (11.7-14.6); RDW-SD 39.4 fL; WBC 6.47 10^3/uL (4.4-10.8)
[2023-09-10 06:48] LABS: Anion Gap 7.4 mmol/L (3-11); BUN 11 mg/dL (7-18); CO2 24.6 mmol/L (21.0-32.0); Chloride 112 mmol/L (98-107); Estimated GFR 71.69 (mL/min/1.73m2); Glucose 93 mg/dL (74-106); Sodium 144 mmol/L (136-145)
[2023-09-10] MEDS: Tamsulosin 0.4 MG CAPCR 0.8 MG PO (08:14)
[2023-09-10] MEDS: Normal Saline Flush 10 ML SYR IVP ×2 (08:14→22:46)
--- NOTE | 2023-09-10 10:28 | W.PM.PROGNOT ---
Date of Service Date of service: 09/10/23 Time of Service: 10:28 Assessment and Plan Assessment and plan (1) Ureteropelvic junction (UPJ) obstruction: Status: Acute Assessment and plan: -CT showed 5x7mm calculi in right UPJ with mild hydronephrosis -UPO good, continue NS 125ml/hr, flowmax, toradol and PRN dilaudid -Cr 0.9, 1.1, 1.3, 1.2, will continue to monitor -if patients pain becomes significantly worse, becomes febrile, or has significant drop off in UOP will reach out for transfer for Urgent Urologic intervention as Dr. Marquez is not available until wednesday -if patient remains stable, plan for ureteral stent placement Wednesday w/ Dr. Marquez (2) Hydronephrosis due to obstruction of ureter: Status: Acute Assessment and plan: -due to UPJ stone as noted above Subjective Subjective Interval history since last seen: Patient states that she is feeling better today and that her pain is well-controlled. Otherwise she has no other complaints concerns at Exam Narrative Exam Narrative: Healthy young female laying in bed in no acute distress, ANO x 4, heart regular rhythm, lungs clear to auscultation bilaterally, abdomen soft, nontender, nondistended Objective Last Vital Signs Temp 99.1 F 09/10/23 07:20 Pulse 55 L 09/10/23 07:20 Resp 16 09/10/23 07:20 BP 111/56 L 09/10/23 07:20 Pulse Ox 97 09/10/23 07:20 Laboratory Results - last 24 hr 09/10/23 05:50 WBC 6.47 RBC 3.67 L Hgb 11.1 L Hct 32.7 L MCV 89 MCH 30.2 MCHC 33.9 RDW 12.1 Plt Count 151 MPV 10.0 Sodium 144 Potassium 4.0 Chloride 112 H Carbon Dioxide 24.6 Anion Gap 7.4 BUN 11 Creatinine 1.0 Est GFR (CKD-EPI 2020) 71.69 Glucose 93 Calcium 8.0 L Time Spent with Patient Time Spent with Patient: >50 minutes Time was spent: preparing to see the patient(eg.review tests), obtaining and/or reviewing separately otained hiistory, ordering medications,tests, procedures, referring, communicating with other health foster care social worker, indepentently interpreting results, counseling the patient and care coordination
--- NOTE | 2023-09-10 11:01 | PDOC.CMPRO ---
Date of service: 09/10/23 Time of Service: 11:01 Care Management Progress Note Progress Note Text Progress Note Text: S/O: Yessy was sitting up in her chair when CM met with her. She stated that she is doing well and that her pain has significantly decreased since yesterday. CM discussed her upcoming urological procedure, which the Urology office is obtaining a PA for, as she is out of network with her insurance. CM encouraged her to call her insurance company to help them understand why she is out of the area currently, which may help to have the PA approved. Later, CM met with Yessy again, who stated that her insurance company reported that she would be discharging home today. There are no current discharge orders; CM stated that her insurance company has likely reviewed the notes provided for her inpatient PA, which indicate that she may not meet inpatient criteria. Her procedure is scheduled for Wednesday. CM discussed the financial implication of her remaining inpatient through the weekend, as her insurance company may not approve additional days while waiting for the procedure. Yessy, ANTHONY and MD practiced shared decision making, and Yessy indicated that she will likely decide to be discharged and wait for the outpatient PA to be completed prior to having the surgical procedure. Later in the day, Yessy developed a fever and increased abdominal pain, therefore she will remain inpatient, being closely monitored. CM will continue to follow. A: Yessy is a 43 year old female admitted to [facility] 09/08/23 for right ureteropelvic obstruction w/ hydronephrosis. P: Yessy will discharge home when medically cleared. She will follow up with her PCP and plan of care instructions. She will transport via private vehicle. CM following. [facility](Care Management) Screening Will the Patient Participate in the Screening?: Yes Do you worry about having a steady place to live?: no In the past 12 months, have you had to go without electric, gas, oil or water in your home?: no Have you or anyone in your house had to go without enough food to eat?: no Has lack of transportation kept you from medical appointments or from doing things needed for daily living?: no Has anyone in your support network made you feel unsafe for any reason?: no
[2023-09-10] MEDS: Polyethylene Glycol 3350 17 GM PACKET PO (13:16)
[2023-09-10] MEDS: Acetaminophen 325 MG TAB PO (18:12)
[2023-09-11] MEDS: Ketorolac 15 MG/ML VIAL IVP ×4 (04:07→22:54)
[2023-09-11 05:51] LABS: Anion Gap 11.5 mmol/L (3-11); BUN 10 mg/dL (7-18); CO2 22.5 mmol/L (21.0-32.0); CREATININE 0.9 mg/dL (0.55-1.02); Calcium 7.9 mg/dL (8.5-10.1); Chloride 109 mmol/L (98-107); Estimated GFR 81.35 (mL/min/1.73m2); Glucose 93 mg/dL (74-106); Potassium 3.9 mmol/L (3.5-5.1); Sodium 143 mmol/L (136-145)
[2023-09-11 07:36] VITALS: BP 114/71; PULSE 52; RESP 15; TEMP 36.9; O2SAT 95
[2023-09-11] MEDS: Tamsulosin 0.4 MG CAPCR 0.8 MG PO (08:25)
[2023-09-11] MEDS: Normal Saline Flush 10 ML SYR IVP ×2 (09:06→22:54)
[2023-09-11 15:42] VITALS: BP 116/69; PULSE 61; RESP 18; TEMP 37.7; O2SAT 97
--- NOTE | 2023-09-11 16:44 | PGE_ITS ---
Date of Service Date of service: 09/11/23 Time of Service: 16:45 Assessment and Plan Assessment and plan (1) Ureteropelvic junction (UPJ) obstruction: Status: Acute Assessment and plan: -CT showed 5x7mm calculi in right UPJ with mild hydronephrosis -UPO good, continue NS 125ml/hr, flowmax, toradol and PRN dilaudid -Cr 0.9, 1.1, 1.3, 1.2, will continue to monitor -if patients pain becomes significantly worse, becomes febrile, or has significant drop off in UOP will reach out for transfer for Urgent Urologic intervention as Dr. Marquez is not available until wednesday -if patient remains stable, plan for ureteral stent placement Wednesday w/ Dr. Marquez (2) Hydronephrosis due to obstruction of ureter: Status: Acute Assessment and plan: -due to UPJ stone as noted above Subjective Subjective Interval history since last seen: Patient states that she is feeling better today and that her is well controlled at rest but that she still has significant difficultly with pain when ambulating or with minimal movement. Otherwise she has no other complaints concerns at Exam Narrative Exam Narrative: Healthy young female laying in bed in no acute distress, ANO x 4, heart regular rhythm, lungs clear to auscultation bilaterally, abdomen soft, nontender, nondistended Objective Last Vital Signs Temp 99.9 F H 09/11/23 15:42 Pulse 61 09/11/23 15:42 Resp 18 09/11/23 15:42 BP 116/69 09/11/23 15:42 Pulse Ox 97 09/11/23 15:42 Laboratory Results - last 24 hr 09/11/23 05:20 Sodium 143 Potassium 3.9 Chloride 109 H Carbon Dioxide 22.5 Anion Gap 11.5 H BUN 10 Creatinine 0.9 Est GFR (CKD-EPI 2020) 81.35 Glucose 93 Calcium 7.9 L Time Spent with Patient Time Spent with Patient: >50 minutes Time was spent: preparing to see the patient(eg.review tests), obtaining and/or reviewing separately otained hiistory, ordering medications,tests, procedures, referring, communicating with other health pediatric critical care nurse, indepentently interpreting results, counseling the patient and care coordination
[2023-09-11 19:35] VITALS: BP 120/66; PULSE 60; RESP 18; TEMP 36; O2SAT 99
[2023-09-11 23:18] VITALS: BP 107/58; PULSE 53; RESP 18; TEMP 36.6; O2SAT 98
[2023-09-12 03:50] VITALS: BP 103/72; PULSE 52; RESP 18; TEMP 36.4; O2SAT 96
[2023-09-12 07:31] VITALS: BP 120/81; PULSE 42; RESP 15; TEMP 36.2; O2SAT 97
[2023-09-12] MEDS: Normal Saline Flush 10 ML SYR IVP (08:38)
--- NOTE | 2023-09-12 09:26 | DSE_ITS ---
Date of service: 09/12/23 Time of Service: 09:30 DS: Diagnosis Discharge Diagnosis (1) Ureteropelvic junction (UPJ) obstruction: Status: Acute Asessment and Plan: Patient initially presented with abdominal and flank pain that was found to be due to an obstructing right UPJ stone. While she was hospitalized plan was for her to have ureteral stent placed by urology on 09/13/2023. However, overnight 09/11/2023 with the assistance of Flomax, Toradol, IV fluids and appropriate pain management patient was able to pass the stone on her own. Ultimately given that the stone has passed and patient's kidney function has remained stable as determined that she is stable for discharge home. (2) Hydronephrosis due to obstruction of ureter: Status: Acute Discharge Plan Disposition Patient Disposition: Home Condition: Good Discharge Details Reason For Visit: Right Ureteropelvic Obstruction w/Hydronephrosis Admit Date/Time: 09/08/23 01:41 Admit Provider: Zac Robledo Attending Provider: Zac Robledo [facility]: Patient initially presented with abdominal and flank pain that was found to be due to an obstructing right UPJ stone. While she was hospitalized plan was for her to have ureteral stent placed by urology on 09/13/2023. However, overnight 09/11/2023 with the assistance of Flomax, Toradol, IV fluids and appropriate pain management patient was able to pass the stone on her own. Ultimately given that the stone has passed and patient's kidney function has remained stable as determined that she is stable for discharge home. Home Meds and New Rx's Prescriptions: No Action No Known Home Meds Discharge Instructions Stand Alone Forms: Nursing Discharge Form Activity:: Activity as Tolerated Equipment/Supplies:: No Equipment Needed Diet:: As Tolerated Discharge Orders Discharge Orders: Discharge Order (Routine); Ordered 09/12/23 Ordered By: Hernán Van DS: Summary Time Spent with Patient providing and/or coordinating discharge services: Greater than 30 minutes Status at Discharge Functional status at discharge: independent ambulation Overall status at discharge: patient is back to baseline Mental Status: mental status grossly normal Speech and Movement: speech and movement normal Mood: congruent mood Affect: normal affect Quality:SDOH Health Related Social Needs: No Data to Display Exam Narrative Exam Narrative: Healthy young female laying in bed in no acute distress, ANO x 4, heart regular rhythm, lungs clear to auscultation bilaterally, abdomen soft, nontender, nondistended Psych Mental Status: mental status grossly normal Speech and Movement: speech and movement normal Mood: congruent mood Affect: normal affect DS: Data Vitals/I&O Vitals and I&O: Vital Signs Temperature 97.2 F L 09/12/23 07:31 Temperature Source Tympanic 09/12/23 07:31 Pulse 42 L 09/12/23 07:31 Pulse Rhythm Regular 09/12/23 03:14 Respiratory Rate 15 09/12/23 07:31 Respiratory Effort Normal, Non-Labored 09/12/23 03:14 Respiratory Depth Normal 09/12/23 03:14 Respiratory Pattern Normal 09/12/23 03:14 Blood Pressure 120/81 09/12/23 07:31 Blood Pressure Mean 78 09/07/23 22:46 Blood Pressure Position Supine 09/07/23 22:41 Pulse Oximetry 97 09/12/23 07:31 Oxygen Delivery Method Room Air 09/12/23 07:31 Oxygen Flow Rate 0 09/12/23 07:31 Pain Level 0 09/12/23 07:31 Comment BEATER OUT LEVELING MACHINE Notified 09/12/23 03:50 Intake & Output 09/11/23 09/12/23 09/12/23 17:59 05:59 17:59 Intake Total 240 / 240 708.334 / 948.334 Output Total 500 / 500 400 / 400 Balance -260 / -260 708.334 / 448.334 -400 / -400 Intake: IV 0 / 0 708.334 / 708.334 Oral 240 / 240 Output: Urine 500 / 500 400 / 400 Other: Urine Color Yellow Pale Yellow Urine Appearance Clear Clear Clear Urine Odor Normal Comment Pt passed kidney stone ATT. Stone sent to lab for testing. Voiding Methods Toilet Toilet Toilet Data Completed and Pending Labs on day of discharge: Labs from last 24 hours 09/11/23 20:53 Stone Source Pending Stone Comment Pending Kidney Stone Analysis Pending [facility] All Active Problems (Updated 09/08/23 @ 07:56 by Zac Robledo) Renal cyst, right (Acute) Hydronephrosis due to obstruction of ureter (Acute) Ureteropelvic junction (UPJ) obstruction (Acute) Kidney stone on right side (Acute) Social History Smoking risk assessment performed?: No Alcohol Intake: current Alcohol Intake frequency: a few times a month Housing: house Time Spent with Patient Time Spent with Patient: <45 minutes Time was spent: preparing to see the patient(eg.review tests), obtaining and/or reviewing separately otained hiistory, ordering medications,tests, procedures, referring, communicating with other health critical care clinical nurse specialist, indepentently interpreting results, counseling the patient and care coordination
--- NOTE | 2023-09-12 14:55 | PDOC.CMDIS ---
Date of service: 09/12/23 Time of Service: 14:55 LACE Index Scoring Tool Questions: Length of Stay (in days): 3 Was the patient admitted via the E.D.?: Yes E.D. Visits: 0 Answers: Total Score: 6 Risk of Readmission: Low Risk Care Management Discharge Plan Reason for Hospitalization: Rt lower quad pain Discharge Plan: Yessy will discharge home when medically cleared with close outpatient follow up. No additional services anticipated at this time. She will transport via private vehicle. Patient/Family Education Needs: Review discharge instructions, discuss Ask Me Three, self care needs upon discharge. SDOH Health Related Social Needs: No Data to Display
[2023-09-15 19:04] LABS: Source: Right Ureter
== END 2023-09-12 09:54 | disposition home or self-care (01) | DRG 694 ==
LOC: ER 09-08 01:55 → MS 09-08 02:22
PROVIDERS: Family Medicine; Admitting Provider Family Medicine; Emergency Provider Student in an Organized Health Care Education/Training Program; Visit Provider Family Medicine
DX: N13.2 Hydronephrosis with renal and ureteral calculous obstruction (principal); N28.1 Cyst of kidney, acquired
CPT/HCPCS: 00123; 36415; 80048; 80053; 81025; 85027; 96361; 96374; 96375; 96376; 99285; 74177; 81003; 81015; 82365; 83605; 83735; 85025; 99222; 99233; 99238; J0131; J1170; J1885; J2270; J2405; J3490